=== PATIENT | male | born 1960 | race African-American/Black ===

== ENCOUNTER 2024-12-17 13:49 | Emergency (ER) | payer MEDICAID ==
[~2024-12-17] VITALS: Ht 182.9 cm; Wt 113.0 kg
[2024-12-17 16:14] LABS: BASOPHILS % 0.8 % (0.0-2.0); EOSINOPHILS % 0.2 % (0.0-5.0); HEMATOCRIT. 41.9 % (42.0-52.0); HEMOGLOBIN. 14.3 g/dL (14.0-18.0); LYMPHOCYTES % 27.7 % (20.0-50.0); MEAN PLATELET VOLUME 8.8 fl (7.4-10.4); MONOCYTES % 8.7 % (2.0-8.0); NEUTROPHILS % 62.6 % (40.0-76.0); PLATELET 80 x1000/uL (130-400); RED BLOOD CELL COUNT 4.54 mill/uL (4.7-6.1); RED CELL DISTRIBUTION WIDTH 14.9 % (11.6-14.6)
[2024-12-17 16:22] LABS: CREATININE 1.0 mg/dL (0.6-1.3)
[2024-12-17 16:23] LABS: TROPONIN I HIGH SENSITIVITY 29 ng/L (3.0-53); UREA NITROGEN BLOOD 7 mg/dL (9-23)
[2024-12-17] MEDS: LORAZEPAM 0.5MG TABLET PO ONE (16:41)
[2024-12-17 18:10] LABS: ETHANOL BLOOD < 10 mg/dL (<10)
[2024-12-17 18:21] LABS: CLARITY URINE CLEAR (CLEAR); GLUCOSE URINE NEGATIVE (NEGATIVE); KETONES URINE 2+ (NEGATIVE); LEUKOCYTE ESTERASE URINE TRACE (NEGATIVE); NITRITE URINE POSITIVE (NEGATIVE); OCCULT BLOOD URINE NEGATIVE (NEGATIVE); PH URINE 7.0 (4.5-8.0); PROTEIN URINE 1+ (NEGATIVE); SPECIFIC GRAVITY URINE 1.015 (1.005-1.030); UROBILINOGEN URINE 1.0 E.U./dL (0.2-1.0)
[2024-12-17 18:44] LABS: *AMPHETAMINES SCREEN URINE NEGATIVE (NEGATIVE); *BARBITURATES SCREEN URINE NEGATIVE (NEGATIVE); *BENZODIAZEPINES SCREEN URINE PRESUMPTIVE POSITIVE (NEGATIVE); *COCAINE SCREEN URINE NEGATIVE (NEGATIVE)
[2024-12-17 18:45] LABS: CANNABINOID URINE SCREEN PRESUMPTIVE POSITIVE (NEGATIVE); ECSTASY MDMA SCREEN URINE NEGATIVE (NEGATIVE); METHADONE URINE SCREEN NEGATIVE (NEGATIVE); OPIATES URINE SCREEN NEGATIVE (NEGATIVE); PHENCYCLIDINE URINE SCREEN NEGATIVE (NEGATIVE)
[2024-12-17 18:48] LABS: COLOR URINE AMBER (YELLOW)
[2024-12-17 18:50] LABS: BACTERIA URINE TRACE; RBC URINE NONE SEEN /hpf (0-2); SQUAMOUS EPITHELIAL CELL URINE RARE /lpf (RARE/1+); WBC URINE 0-2 /hpf (0-2)
[2024-12-17 19:25] LABS: TROPONIN I HIGH SENSITIVITY 27 ng/L (3.0-53)
[2024-12-17] MEDS: SULFAMETHOXAZOLE/TRIMETHOPRIM 800/160MG TABLET PO SCH (22:30)
[2024-12-17] MEDS: ACETAMINOPHEN 325MG TABLET PO ONE (22:30)
[2024-12-17] MEDS: TRAZODONE HCL 50MG TABLET PO STA (22:30)
[2024-12-18] MEDS ORDERED: TOPUD MT (10:27)
[2024-12-18] MEDS ORDERED: ONDA4TAB50 MT (10:27)
[2024-12-18] MEDS ORDERED: PANT40SU MT (10:27)
[2024-12-18 11:09] VITALS: BP 130/95; PULSE 97; RESP 16; TEMP 36.7; O2SAT 98
== END 2024-12-19 00:43 | disposition home or self-care (01) ==
LOC: ER 13:59
DX: R07.89 Other chest pain (principal); R45.851 Suicidal ideations; F10.10 Alcohol abuse, uncomplicated; E11.9 Type 2 diabetes mellitus without complications; E78.00 Pure hypercholesterolemia, unspecified; I10 Essential (primary) hypertension; G40.909 Epilepsy, unspecified, not intractable, without status epilepticus; Z20.822 Contact with and (suspected) exposure to COVID-19; Y90.0 Blood alcohol level of less than 20 mg/100 ml
CPT/HCPCS: 36415; 71045; 80048; 80305; 80307; 80320; 80329; 81003; 84484; 85025; 87426; 93005; 99285; G0480

== ENCOUNTER 2025-04-13 11:46 | Emergency (ER) | payer MEDICAID, OTHER ==
[~2025-04-13] VITALS: Ht 177.8 cm; Wt 88.0 kg
[~2025-04-13 11:46] MED LIST: ASPI-1406 PO; ONDA4TAB50 MT; PANT40SU MT; TOPUD MT
[2025-04-13 11:48] VITALS: O2SAT 95
[2025-04-13 16:25] VITALS: BP 122/76; PULSE 94; RESP 18; TEMP 36.4; O2SAT 98
== END 2025-04-13 16:54 | disposition home or self-care (01) ==
LOC: ER 11:46
DX: S05.01XA Injury of conjunctiva and corneal abrasion without foreign body, right eye, initial encounter (principal); S09.8XXA Other specified injuries of head, initial encounter; F10.229 Alcohol dependence with intoxication, unspecified; Z79.82 Long term (current) use of aspirin; Z79.899 Other long term (current) drug therapy; W18.30XA Fall on same level, unspecified, initial encounter; Y93.89 Activity, other specified; Y92.89 Other specified places as the place of occurrence of the external cause; Y99.8 Other external cause status; Y90.9 Presence of alcohol in blood, level not specified
CPT/HCPCS: 99284